=== PATIENT | male | born 1965 | race Two or more races ===

== ENCOUNTER 2017-12-25 11:55 | Emergency (ER) | payer BC, OTHER ==
[~2017-12-25] VITALS: Ht 172.7 cm; Wt 65.9 kg
[2017-12-25 12:10] VITALS: BP 132/77
[2017-12-25] MEDS ORDERED: METHOCARBAMOL 750 MG TABLET ONE (13:29)
[2017-12-25] MEDS ORDERED: KETOROLAC 30 MG/1 ML ONE (13:29)
[2017-12-25] MEDS ORDERED: METHOCARBAMOL 750 MG TABLET PO ONE (13:30)
[2017-12-25] MEDS ORDERED: KETOROLAC 30 MG/1 ML IM ONE (13:30)
== END 2017-12-25 14:19 | disposition home or self-care (01) ==
LOC: ED 13:23
DX: M54.42 Lumbago with sciatica, left side (principal); M46.1 Sacroiliitis, not elsewhere classified
CPT/HCPCS: 72110; 96372; 99284; J1885

== ENCOUNTER 2019-12-22 06:41 | Day surgery (SDC) | payer OTHER ==
[~2019-12-22] VITALS: Ht 175.3 cm; Wt 65.9 kg
[~2019-12-22 06:41] MED LIST: BUPIVACAINE/PF 0.25% ONE; BUPIVACAINE/PF 0.5% ONE; EPINEPHRINE 1 MG/ML, 1ML ONE; LIDOCAINE 1%, 20ML ONE
[2019-12-22] MEDS ORDERED: KETOROLAC 30 MG/1 ML IVPush PRN (07:30)
[2019-12-22] MEDS ORDERED: DIAZEPAM 5 MG/ML, 2ML IVPush PRN (07:30)
[2019-12-22] MEDS ORDERED: ACETAMINOPHEN 325 MG TABLET PO PRN (07:30)
[2019-12-22] MEDS ORDERED: FENTANYL PF 100 MCG/2ML IV PRN (07:30)
[2019-12-22] MEDS ORDERED: EPHEDRINE 50 MG/ML, 1ML IM PRN (07:30)
[2019-12-22] MEDS ORDERED: LABETALOL 5MG/ML, 20ML IV PRN (07:30)
[2019-12-22] MEDS ORDERED: HYDROmorphone 1 MG/ML, 1ML INJ IVPush PRN (07:30)
[2019-12-22] MEDS ORDERED: ALBUTEROL/IPRATROPIUM 2.5MG/0.5MG, 3 ML NPPB PRN (07:30)
[2019-12-22] MEDS ORDERED: HYDROcodone/APAP 7.5-325MG/15ML UDC PO PRN (07:30)
[2019-12-22] MEDS ORDERED: MEPERIDINE/PF 25MG/0.5ML IVPush PRN (07:30)
[2019-12-22] MEDS ORDERED: EPHEDRINE 50 MG/ML, 1ML IVPush PRN (07:30)
[2019-12-22] MEDS ORDERED: DIPHENHYDRAMINE 50 MG/ML, 1ML IVPush PRN (07:30)
[2019-12-22] MEDS ORDERED: ONDANSETRON 2MG/ML, 2ML IVPush PRN (07:30)
[2019-12-22] MEDS ORDERED: OXYcodone 5 MG/5 ML ORAL.SOL UDC PO PRN (07:30)
[2019-12-22] MEDS ORDERED: MIDAZOLAM 1 MG/ML, 2ML IV PRN (07:30)
[2019-12-22] MEDS ORDERED: LORazepam 2 MG/ML, 1ML IVPush PRN (07:30)
[2019-12-22] MEDS ORDERED: HALOPERIDOL 5 MG/ML IV PRN (07:30)
[2019-12-22] MEDS ORDERED: CHLORHEXIDINE 15 ML UDC ONE (07:57)
[2019-12-22] MEDS ORDERED: PLEASE ENTER HEIGHT AND WEIGHT MC SCH (08:00)
[2019-12-22] MEDS ORDERED: CHLORHEXIDINE 15 ML UDC MM ONE (08:00)
[2019-12-22] MEDS ORDERED: LIDOCAINE-MPF 1%, 2ML INFIL ONE (08:00)
[2019-12-22] MEDS: LACTATED RINGERS 1,000 ML IV SCH ×2 (08:05→08:16)
[2019-12-22 08:17] VITALS: BP 138/79
[2019-12-22] MEDS ORDERED: ROCURONIUM 10MG/ML,5ML ONE (08:17)
[2019-12-22] MEDS ORDERED: DEXAMETHASONE 4 MG/ML, 1ML ONE (08:17)
[2019-12-22] MEDS ORDERED: GLYCOPYRROLATE 0.2MG/1ML, 5ML ONE (08:17)
[2019-12-22] MEDS ORDERED: PROPOFOL 10 MG/ML, 20ML ONE (08:17)
[2019-12-22] MEDS ORDERED: LIDOCAINE GEL 2%, 5ML ONE (08:17)
[2019-12-22] MEDS ORDERED: MIDAZOLAM 1 MG/ML, 5ML ONE (08:18)
[2019-12-22] MEDS ORDERED: FENTANYL PF 250 MCG/5ML ONE (08:18)
[2019-12-22] MEDS ORDERED: NONE PER PT (08:24)
[2019-12-22] MEDS ORDERED: CEFAZOLIN 1,000 MG ONE (08:26)
[2019-12-22] MEDS ORDERED: KETOROLAC 30 MG/1 ML ONE (09:28)
== END 2019-12-22 10:35 | disposition home or self-care (01) ==
LOC: OR 06:41
PROVIDERS: ATTEND Surgery Surgery of the Hand
DX: M79.641 Pain in right hand (principal); Z11.59 Encounter for screening for other viral diseases; L03.011 Cellulitis of right finger; Z87.891 Personal history of nicotine dependence
CPT/HCPCS: 26034; 87015; 87070; 87075; 87102; 87116; 87176; 87205; 87206; 87635; 88304; 88311; J0690; J1100; J1885; J2250; J2704; J3010; J3490; J7120; J0171